=== PATIENT | male | born 1955 ===

== ENCOUNTER 2017-10-02 02:49 | Emergency (ER) | payer BC ==
[2017-10-02] MEDS: MAGNESIUM CITRATE 300 ML BTL PO (03:43)
[2017-10-02] MEDS: NA PHOSPHATE/BIPHOS 133 ML ENEMA PR (03:43)
[2017-10-02 03:49] LABS: ADD MAN DIFF? NO
[2017-10-02 04:10] LABS: BASOPHILS % 0.2 % (0.0-2.0); EOSINOPHILS % 0.2 % (0.0-7.0); HEMATOCRIT 44.1 % (42.0-52.0); HEMOGLOBIN 14.9 g/dl (14.0-18.0); LYMPHOCYTES # 1.2 10^3/ul (0.8-2.9); LYMPHOCYTES % 6.4 % (15.0-51.0); MEAN CORPUSCULAR HEMOGLOBIN 27.2 pg (29.0-33.0); MEAN CORPUSCULAR HGB CONC 33.8 g/dl (32.0-37.0); MEAN CORPUSCULAR VOLUME 80.6 fl (82.0-101.0); MEAN PLATELET VOLUME 10.2 fl (7.4-10.4); MONOCYTES % 5.5 % (0.0-11.0); NEUTROPHIL # 15.8 10^3/ul (1.6-7.5); NEUTROPHILS % 87.2 % (39.0-77.0); PLATELET COUNT 227 10^3/UL (140-415); POSITIVE DIFF @See below; RED BLOOD COUNT 5.47 10^6/ul (4.70-6.10); RED CELL DISTRIBUTION WIDTH 14.5 % (11.5-14.5)
[2017-10-02 04:10] LABS: WHITE BLOOD COUNT 18.1 10^3/ul (4.8-10.8)
[2017-10-02 04:27] LABS: ALANINE AMINOTRANSFERASE 38 IU/L (13-69); ALBUMIN 4.8 g/dl (3.3-4.9); ALBUMIN/GLOBULIN RATIO 1.33; ALKALINE PHOSPHATASE 93 IU/L (42-121); ANION GAP 19 (8-16); ASPARTATE AMINO TRANSFERASE 24 IU/L (15-46); BLOOD UREA NITROGEN 26 mg/dl (7-20); CALCIUM 8.9 mg/dl (8.4-10.2); CARBON DIOXIDE 27 mmol/L (21-31); CHLORIDE 96 mmol/L (97-110); CREATININE 1.12 mg/dl (0.61-1.24); GLUCOSE 150 mg/dl (70-220); LIPASE 28 U/L (23-300); POTASSIUM 3.7 mmol/L (3.5-5.1); SODIUM 138 mmol/L (135-144); TOTAL PROTEIN 8.4 g/dl (6.1-8.1)
[2017-10-02 05:20] LABS: TROPONIN-I < 0.012 ng/ml (0.00-0.12)
[2017-10-02] MEDS: HYDROmorphONE 0.5 MG/0.5 ML SYG IV (06:11)
== END 2017-10-02 08:08 | disposition home or self-care (01) ==
LOC: E/R 02:49
DX: K59.00 Constipation, unspecified (principal); D72.829 Elevated white blood cell count, unspecified
CPT/HCPCS: 36415; 71045; 74019; 74176; 80053; 83690; 84484; 85025; 93005; 96374; 99285-25